=== PATIENT | female | born 1985 | race Caucasian/White ===

== ENCOUNTER → 2018-01-28 | Outpatient (CLI) | payer OTHER ==
[~2018-01-28] MED LIST: IBU800 FT; LOOVRAL PO; PER PO
[2018-01-28 12:01] LABS: PLATELET COUNT, AUTOMATED 278 K/uL (150-450)
--- NOTE | 2018-01-28 13:20 | RADIOLOGY IMAGING REPORT ---
FACILITY: [facility] [place] PATIENT NAME: Bushra Wilkerson : 1985 MR: [id number] V: [id number] EXAM DATE: ORDERING PHYSICIAN: DOREEN TONY TECHNOLOGIST: Location: [facility] Patient: Bushra Wilkerson : 1985 Visit/Account:[id number] Date of Sevice: 01/28/2018 Chest 2 views: HISTORY: Fatigue, "cognitive issues" COMPARISON: None. FINDINGS: Frontal and lateral chest: Cardiomediastinal silhouette is within normal limits. There is no infiltrate or pleural effusion. No pneumothorax. Pulmonary vasculature is normal. Osseous structures are unremarkable for age. IMPRESSION: No evidence of acute cardiopulmonary abnormality. Report Dictated By: Stacie Romero MD at 01/28/2018 1:14 PM Report E-Signed By: Stacie Romero MD at 01/28/2018 1:15 PM WSN:[id number]
== END ==
LOC: LAB 11:41
PROVIDERS: ATTEND Emergency Medicine
DX: R53.83 Other fatigue (principal)
CPT/HCPCS: 36415; 71046; 82040; 82164; 82247; 82306; 82310; 82374; 82435; 82550; 82565; 82607; 82728; 82947; 83036; 83540; 83550; 84075; 84132; 84155; 84160; 84165; 84295; 84443; 84450; 84460; 84520; 85025; 85379; 86140